=== PATIENT | female | born 1970 | race Caucasian/White ===

== ENCOUNTER → 2024-02-12 | Outpatient (CLI) | payer SELFPAY, OTHER ==
--- NOTE | 2024-02-12 12:57 | VDLE_ITS ---
Reason For Study: SVT, DVT Rt GastrocV RIGHT LEFT CFV is compressible, spontaneous, phasic, CFV is compressible, spontaneous, phasic, competent and demonstrates normal competent, and demonstrates normal augmentation. augmentation. FV is compressible, phasic, and INCOMPETENT FV is compressible, spontaneous, phasic, for greater than 1.0 second. competent and demonstrates normal POP V is compressible, spontaneous, phasic, augmentation. competent and demonstrates normal POP V is compressible, spontaneous, phasic, augmentation. competent and demonstrates normal T/P Trunk is compressible. augmentation. PTV is compressible. T/P Trunk is compressible. RT PerV is compressible. PTV is compressible. SFJ is INCOMPETENT and measures 0.52cm x 0.58 LT PerV is compressible. cm. SFJ is INCOMPETENT and measures 0.85cm x 0.83 GSV proximal thigh measures 0.59cm x 0.68 cm. cm. GSV at knee measures 0.54cm x 0.61 cm. GSV proximal thigh measures 0.36cm x 0.36 cm. GSV INCOMPETENT throughout for greater than GSV at knee measures 0.54cm x 0.56 cm. 0.5 seconds. GSV INCOMPETENT throughout for greater than SSV mid calf is competent and measures 0.25cm 0.5 seconds. x 0.25 cm. ASV mid calf is INCOMPETENT for greater than Rt GastrocV is partially compressible 0.5 seconds and measures 0.18cm x 0.19 cm. Rt GSV is partially compressible throughout SSV mid calf is competent and measures 0.17cm most of the leg x 0.16 cm. Rt Anterior calf varicosity is also partially compressible. Procedure This is a venous duplex using B-mode, color flow and spectral Doppler. Exam performed in department. A preliminary report was called and/or faxed to Clarissa FREEMAN/ Alda PEREIRA. VL/Venous Duplex US - Benoit Extrem Interpretation Summary Chronic deep vein thrombosis is noted in the right gastrocnemius vein. Chronic superficial vein thrombosis noted in the right great saphenous vein and calf varicosities. Deep veins of the left lower extremity are patent and compressible segmentally. There is no evidence of left lower extremity deep vein thrombosis. The left great saphenous vein deandra ears patent and compressible segmentally. Positive for reflux in the right femoral vein, saphenofemoral junction, great s aphenous vein throughout. Positive for reflux in the left saphenofemoral junction, great saphenous vein t hroughout, and accessory saphenous vein in the calf. Ordering Physician: Clarissa Cevallos Referring Physician: Felipe Ortiz Performed By: Vannesa Allison, TIMOTHY, RVT
== END | disposition home or self-care (01) ==
LOC: CVS 12:52
PROVIDERS: PCP Family Medicine; Referring Provider Physician Assistant; Visit Provider Physician Assistant
DX: I82.409 Acute embolism and thrombosis of unspecified deep veins of unspecified lower extremity (principal); I82.890 Acute embolism and thrombosis of other specified veins
CPT/HCPCS: 93970

== ENCOUNTER → 2024-08-12 | Outpatient (CLI) | payer OTHER, SELFPAY ==
--- NOTE | 2024-08-12 09:58 | VDLE_ITS ---
Reason For Study Reason For Study: Right leg swelling RIGHT CFV is compressible, spontaneous, phasic, competent and demonstrates normal augmentation. FV is compressible, spontaneous, phasic, competent and demonstrates normal augmentation. POP V is compressible, spontaneous, phasic, competent and demonstrates normal augmentation. T/P Trunk is compressible. PTV is compressible. RT PerV is compressible. SFJ is INCOMPETENT and measures 0.62 cm. GSV proximal thigh measures 0.70 x 0.65 cm. GSV at knee measures 0.17 x 0.17 cm. GSV INCOMPETENT throughout for greater than 0.5 seconds. GSV is partiallly compressible throughout most of leg. GSV from mid thigh to prox calf is very small. ASV mid thigh is INCOMPETENT for greater than 0.5 seconds and measures 0.74 x 0.66 cm it is partially compressible throughout. Attaches GSV mid thigh to GSV prox calf. ASV proximal calf is INCOMPETENT for greater than 0.5 seconds and measures 0.30 x 0.27 cm. Varicose vein that wraps anteriorly in calf is partially compressible. Attaches to ASV mid thigh. INCOMPETENT running instructor noted 9 cm above medial malleolus. SSV mid calf is competent and measures 0.25 x 0.26 cm. Rt GastrocV is partially compressible. Procedure This is a venous duplex using B-mode, color flow and spectral Doppler. Exam performed in department. Patient was scanned in reverse Trendelenburg position during reflux assessment. A preliminary report was called and/or faxed to lCarissa FREEMAN. VL/Venous Duplex US, Unilateral Interpretation Summary Chronic deep vein thrombosis noted in the right gastrocnemius vein. Chronic superficial vein thrombosis noted in the right great saphenous vein, ac cessory saphenous vein. Positive for reflux in the right saphenofemoral junction, great saphenous vein throughout, accessory saphenous vein in the thigh, accessory saphenous vein in the calf, and running instructor in the medial c [facility]. Ordering Physician: Clarissa Cevallos Referring Physician: MD Felipe Valdovinos Performed By: Nancy Bates RVT
== END | disposition home or self-care (01) ==
LOC: CVS 09:52
PROVIDERS: PCP Family Medicine; Referring Provider Physician Assistant; Visit Provider Physician Assistant
DX: I87.2 Venous insufficiency (chronic) (peripheral) (principal); I82.561 Chronic embolism and thrombosis of right calf muscular vein; I82.591 Chronic embolism and thrombosis of other specified deep vein of right lower extremity; I82.890 Acute embolism and thrombosis of other specified veins
CPT/HCPCS: 93971